=== PATIENT | female | born 1955 | race Two or more races ===

== ENCOUNTER 2017-03-16 15:45 | Inpatient (IN) | payer MEDICAID ==
[~2017-03-16] VITALS: Ht 152.4 cm; Wt 108.0 kg
[~2017-03-16 15:45] MED LIST: ALBU0.084 IN; ALPR0.5T PO; ANAS1TAB6 OR; ARIP2TAB PO; BUSP5TAB51; CEPH500C OR; FURO20TA PO; GABA300C10 OR; IBUP600T39 PO; METF-372 OR; METO25TA3; NITR50CA34 OR; OME20GT; PIOG45TA8 OR; RANI300C7 OR; SERT-160 OR; SIMV-13 OR
[2017-03-16] MEDS ORDERED: SODIUM CHLORIDE 0.9% 500 ML IV ONE (16:48)
[2017-03-16] MEDS ORDERED: LORazepam 2MG/ML-1ML VIAL IV ONE (17:00)
[2017-03-16 19:04] LABS: Basophils # (auto) 0 uL; Basophils % (auto) 0.3 % (0.0-2.0); Eosinophils # (auto) 0.4 uL; Eosinophils % (auto) 3.3 % (0.0-7.0); Hematocrit 41.3 % (36.0-46.0); Hemoglobin 13.1 g/dL (12.2-16.2); Lymphocytes # (auto) 1.7 uL; Lymphocytes % (auto) 15.5 % (10.0-50.0); Mean Corpuscular Hemoglobin 27.2 pg (28.0-32.0); Mean Corpuscular Hgb Conc. 31.7 g/dL (32.0-36.0); Mean Corpuscular Volume 85.7 fL (80.0-100.0); Monocytes # (auto) 0.7 uL; Monocytes % (auto) 6.7 % (0.0-12.0); Neutrophils % (auto) 74.2 % (37.0-80.0); Nucleated Red Blood Cells % 0.1 %; Platelet Count (auto) 331 10^3/uL (140-450); Red Blood Cells 4.82 10^6/uL (4.0-5.20); Red Cell Distribution Width 17.3 % (11.8-14.3); White Blood Cell 10.8 10^3/uL (4.4-10.8)
[2017-03-16 19:29] LABS: Alanine Aminotransferase 24 U/L (13-56); Albumin 3.4 g/dL (3.4-5.0); Alkaline Phosphatase 80 U/L (45-117); Anion Gap 7 (5-15); Aspartate Aminotransferase 30 U/L (15-37); BUN/Creatinine Ratio 33.2; Bilirubin, Total 0.5 mg/dL (0.2-1.0); Blood Urea Nitrogen 67 mg/dL (7-18); Calcium 8.2 mg/dL (8.5-10.1); Carbon Dioxide 32 mmol/L (21-32); Chloride 99 mmol/L (98-107); GFR African American 32 mL/min; GFR Non-African American 26 mL/min; Glucose 142 mg/dL (74-106); Magnesium 2.6 mg/dL (1.6-2.6); Potassium 4.6 mmol/L (3.5-5.1); Sodium 138 mmol/L (136-145); Total Protein 8.2 g/dL (6.4-8.2)
[2017-03-16] MEDS ORDERED: DEXTROSE (50%) 50ML SYRG IV PRN (21:15)
[2017-03-16] MEDS ORDERED: ACETAMINOPHEN 500 MG TAB PO PRN (21:15)
[2017-03-16] MEDS ORDERED: ONDANSETRON HCL 4 MG/2 ML VIAL IV PRN (21:15)
[2017-03-16] MEDS: GABAPENTIN 300 MG CAP PO SCH (22:00)
[2017-03-16 22:30] VITALS: BP 126/74
[2017-03-16] MEDS ORDERED: AZITHROMYCIN 500MG/ 250ML 250 ML IV ONE (22:30)
[2017-03-16] MEDS: InsuLIN REG 1unit/0.01ml Soln (100units/ml) SC SCH (22:30)
[2017-03-16] MEDS ORDERED: FUROSEMIDE 40 MG/4 ML VIAL IV ONE (22:30)
[2017-03-16] MEDS: ACCU-CHEK COMFORT CURVE STRIP VI SCH (22:30)
[2017-03-16 22:38] LABS: Urine Bacteria NONE SEEN /hpf (None Seen); Urine Blood Negative /uL (Negative); Urine Hyaline Cast FEW /lpf (0 - 2); Urine Specific Gravity 1.017 (1.001-1.035); Urine WBC 1 /hpf (0 - 5)
[2017-03-16] MEDS: HYDROcodone-ACET 5/325MG TAB PO PRN (23:56)
[2017-03-16] MEDS: ATORVASTATIN 20 MG TAB PO SCH (23:56)
[2017-03-16] MEDS: TEMAZEPAM 15 MG CAP PO PRN (23:57)
[2017-03-17] MEDS: ALBUTEROL SULF 2.5 MG/0.5ML(0.5%) NEB SOLN NEB SCH ×4 (00:12→18:00)
[2017-03-17] MEDS: IPRATROPIUM BROM 0.5 MG/2.5ML INH SOL NEB SCH ×4 (00:12→18:00)
[2017-03-17 00:20] VITALS: BP 158/82
[2017-03-17 05:00] VITALS: BP 143/79
[2017-03-17] MEDS: DOXYCYCLINE HYC 100MG/250ML 250 ML IV SCH ×2 (06:10→17:44)
[2017-03-17] MEDS: InsuLIN REG 1unit/0.01ml Soln (100units/ml) SC SCH ×4 (07:00→21:36)
[2017-03-17] MEDS: ACCU-CHEK COMFORT CURVE STRIP VI SCH ×4 (07:02→21:36)
[2017-03-17] MEDS: HYDROcodone-ACET 5/325MG TAB PO PRN ×2 (07:54→21:37)
[2017-03-17 08:15] LABS: Basophils # (auto) 0 uL; Basophils % (auto) 0.3 % (0.0-2.0); Eosinophils # (auto) 0.6 uL; Eosinophils % (auto) 6.8 % (0.0-7.0); Hematocrit 38.2 % (36.0-46.0); Hemoglobin 12.1 g/dL (12.2-16.2); Lymphocytes # (auto) 1.6 uL; Lymphocytes % (auto) 18.8 % (10.0-50.0); Mean Corpuscular Hemoglobin 27.2 pg (28.0-32.0); Mean Corpuscular Hgb Conc. 31.8 g/dL (32.0-36.0); Mean Corpuscular Volume 85.8 fL (80.0-100.0); Monocytes # (auto) 0.6 uL; Monocytes % (auto) 7.4 % (0.0-12.0); Neutrophils # (auto) 5.6 uL; Neutrophils % (auto) 66.7 % (37.0-80.0); Nucleated Red Blood Cells % 0.1 %; Platelet Count (auto) 292 10^3/uL (140-450); Red Blood Cells 4.46 10^6/uL (4.0-5.20); Red Cell Distribution Width 16.9 % (11.8-14.3); White Blood Cell 8.4 10^3/uL (4.4-10.8)
[2017-03-17 08:27] LABS: BUN/Creatinine Ratio 45.5; Calcium 8.3 mg/dL (8.5-10.1); Potassium 4.3 mmol/L (3.5-5.1)
[2017-03-17 09:00] VITALS: BP 139/62
[2017-03-17] MEDS ORDERED: AZITHROMYCIN 500MG/ 250ML 250 ML IV SCH (10:00)
[2017-03-17] MEDS: PANTOPRAZOLE 40 MG TAB PO SCH (12:10)
[2017-03-17] MEDS: GABAPENTIN 300 MG CAP PO SCH ×2 (12:10→21:35)
[2017-03-17] MEDS: BENAZEPRIL HCL 10 MG TAB PO SCH (12:10)
[2017-03-17 17:00] VITALS: BP 143/48
[2017-03-17] MEDS: ENOXAPARIN SOD 40 MG/0.4 ML SYRINGE SC SCH (17:44)
[2017-03-17] MEDS ORDERED: LORazepam 2MG/ML-1ML VIAL IV PRN (19:30)
[2017-03-17 21:30] VITALS: BP 135/57
[2017-03-17] MEDS: ATORVASTATIN 20 MG TAB PO SCH (21:35)
[2017-03-17] MEDS: LORazepam 0.5 MG TAB PO PRN (21:36)
[2017-03-18 05:00] VITALS: BP 149/80
[2017-03-18] MEDS: DOXYCYCLINE HYC 100MG/250ML 250 ML IV SCH ×2 (05:54→17:40)
[2017-03-18 06:26] LABS: Basophils # (auto) 0 uL; Basophils % (auto) 0.3 % (0.0-2.0); Eosinophils # (auto) 0.6 uL; Eosinophils % (auto) 8.4 % (0.0-7.0); Hematocrit 37.1 % (36.0-46.0); Hemoglobin 11.9 g/dL (12.2-16.2); Lymphocytes # (auto) 1.6 uL; Lymphocytes % (auto) 22.8 % (10.0-50.0); Mean Corpuscular Hemoglobin 27.5 pg (28.0-32.0); Mean Corpuscular Volume 85.9 fL (80.0-100.0); Monocytes # (auto) 0.5 uL; Neutrophils # (auto) 4.4 uL; Neutrophils % (auto) 61.5 % (37.0-80.0); Platelet Count (auto) 302 10^3/uL (140-450); Red Blood Cells 4.32 10^6/uL (4.0-5.20); Red Cell Distribution Width 16.6 % (11.8-14.3); White Blood Cell 7.2 10^3/uL (4.4-10.8)
[2017-03-18] MEDS: ACCU-CHEK COMFORT CURVE STRIP VI SCH ×4 (06:31→22:13)
[2017-03-18] MEDS: InsuLIN REG 1unit/0.01ml Soln (100units/ml) SC SCH ×4 (06:31→22:13)
[2017-03-18 06:45] LABS: BUN/Creatinine Ratio 43.1; Calcium 8.4 mg/dL (8.5-10.1); Potassium 4.8 mmol/L (3.5-5.1)
[2017-03-18] MEDS: IPRATROPIUM BROM 0.5 MG/2.5ML INH SOL NEB SCH ×4 (06:50→18:45)
[2017-03-18] MEDS: ALBUTEROL SULF 2.5 MG/0.5ML(0.5%) NEB SOLN NEB SCH ×4 (06:50→18:45)
[2017-03-18 08:00] VITALS: BP 144/54
[2017-03-18 09:00] VITALS: BP 144/54
[2017-03-18] MEDS: BENAZEPRIL HCL 10 MG TAB PO SCH (09:58)
[2017-03-18] MEDS: GABAPENTIN 300 MG CAP PO SCH ×2 (10:00→22:13)
[2017-03-18] MEDS: PANTOPRAZOLE 40 MG TAB PO SCH (10:01)
[2017-03-18] MEDS: ENOXAPARIN SOD 40 MG/0.4 ML SYRINGE SC SCH (10:02)
[2017-03-18] MEDS: HYDROcodone-ACET 5/325MG TAB PO PRN (12:27)
[2017-03-18 13:00] VITALS: BP 162/78
[2017-03-18] MEDS ORDERED: POTA10TA34 PO (13:54)
[2017-03-18] MEDS ORDERED: PROMETHAZINE-DM 5 ML ORAL SYRUP PO PRN (14:00)
[2017-03-18] MEDS ORDERED: FUROSEMIDE 20 MG TAB PO SCH (14:00)
[2017-03-18] MEDS ORDERED: OXYCODONE W/ ACETAMINOPHEN 5/325MG TABLET PO PRN (14:00)
[2017-03-18] MEDS: LORazepam 0.5 MG TAB PO PRN (14:25)
[2017-03-18] MEDS ORDERED: PERCOT PO (15:52)
[2017-03-18] MEDS ORDERED: MELO1TAB56 PO (15:52)
[2017-03-18] MEDS ORDERED: OMEG100078 PO (15:52)
[2017-03-18] MEDS ORDERED: POM (15:52)
[2017-03-18] MEDS ORDERED: PANT40TA2 PO (15:52)
[2017-03-18] MEDS ORDERED: METH500T6 PO (15:52)
[2017-03-18] MEDS ORDERED: CHOL20007 OR (15:52)
[2017-03-18] MEDS ORDERED: BENZ1CAP24 PO (15:52)
[2017-03-18] MEDS ORDERED: BENA20TA14 PO (15:52)
[2017-03-18] MEDS ORDERED: ONDA4TAB5 PO (15:52)
[2017-03-18] MEDS ORDERED: ATOR1TAB PO (15:52)
[2017-03-18] MEDS ORDERED: INSLANTI SC (15:52)
[2017-03-18 17:00] VITALS: BP 151/74
[2017-03-18] MEDS: OXYCODONE W/ ACETAMINOPHEN 5/325MG TABLET PO PRN ×2 (17:44→23:39)
[2017-03-18 22:00] VITALS: BP 148/66
[2017-03-18] MEDS: ATORVASTATIN 20 MG TAB PO SCH (22:12)
[2017-03-19] MEDS: ALBUTEROL SULF 2.5 MG/0.5ML(0.5%) NEB SOLN NEB SCH ×3 (00:09→11:28)
[2017-03-19] MEDS: IPRATROPIUM BROM 0.5 MG/2.5ML INH SOL NEB SCH ×3 (00:09→11:28)
[2017-03-19] MEDS: TEMAZEPAM 15 MG CAP PO PRN (00:41)
[2017-03-19 05:00] VITALS: BP 159/61
[2017-03-19] MEDS: DOXYCYCLINE HYC 100MG/250ML 250 ML IV SCH (05:50)
[2017-03-19] MEDS: OXYCODONE W/ ACETAMINOPHEN 5/325MG TABLET PO PRN ×3 (05:51→16:18)
[2017-03-19] MEDS: InsuLIN REG 1unit/0.01ml Soln (100units/ml) SC SCH ×2 (06:31→16:20)
[2017-03-19] MEDS: ACCU-CHEK COMFORT CURVE STRIP VI SCH ×2 (06:31→16:18)
[2017-03-19 07:30] VITALS: BP 158/78
[2017-03-19 09:00] VITALS: BP 168/87
[2017-03-19] MEDS: ENOXAPARIN SOD 40 MG/0.4 ML SYRINGE SC SCH (10:08)
[2017-03-19] MEDS: GABAPENTIN 300 MG CAP PO SCH (10:08)
[2017-03-19] MEDS: BENAZEPRIL HCL 10 MG TAB PO SCH (10:09)
[2017-03-19] MEDS: PANTOPRAZOLE 40 MG TAB PO SCH (10:09)
[2017-03-19] MEDS ORDERED: FUROSEMIDE 20 MG TAB PO ONE (11:15)
== END 2017-03-19 16:25 | disposition home or self-care (01) | DRG 469 ==
LOC: ER 15:45 → EDBD 15:45 → TELE 15:46 → TELE-WESTW 22:26
PROVIDERS: ADMIT Nurse Practitioner Family; ATTEND Internal Medicine
DX: N17.0 Acute kidney failure with tubular necrosis (principal); I50.33 Acute on chronic diastolic (congestive) heart failure; J96.11 Chronic respiratory failure with hypoxia; E11.21 Type 2 diabetes mellitus with diabetic nephropathy; I13.0 Hypertensive heart and chronic kidney disease with heart failure and stage 1 through stage 4 chronic kidney disease, or unspecified chronic kidney disease; G25.0 Essential tremor; Z99.81 Dependence on supplemental oxygen; J44.9 Chronic obstructive pulmonary disease, unspecified; M19.90 Unspecified osteoarthritis, unspecified site; E66.9 Obesity, unspecified; Z68.42 Body mass index [BMI] 45.0-49.9, adult; F32.9 Major depressive disorder, single episode, unspecified; E11.40 Type 2 diabetes mellitus with diabetic neuropathy, unspecified; G40.89 Other seizures; W18.39XA Other fall on same level, initial encounter; F41.9 Anxiety disorder, unspecified; N18.9 Chronic kidney disease, unspecified; R26.9 Unspecified abnormalities of gait and mobility; E78.5 Hyperlipidemia, unspecified; K21.9 Gastro-esophageal reflux disease without esophagitis; Z79.4 Long term (current) use of insulin; Z82.49 Family history of ischemic heart disease and other diseases of the circulatory system; Z86.73 Personal history of transient ischemic attack (TIA), and cerebral infarction without residual deficits; Z87.442 Personal history of urinary calculi; Z85.3 Personal history of malignant neoplasm of breast; Z79.899 Other long term (current) drug therapy; Z87.891 Personal history of nicotine dependence; Y93.89 Activity, other specified; Y92.89 Other specified places as the place of occurrence of the external cause; Y99.8 Other external cause status
CPT/HCPCS: 36415; 70551; 71046; 80048; 80053; 80061; 81001; 82962; 83036; 83735; 83880; 84443; 84484; 85025; 93306; 94640; 95819; 96361; 96365; 96375; J1815; J3490

== ENCOUNTER 2020-05-18 10:14 | Inpatient (IN) | payer OTHER, MEDICAID ==
[~2020-05-18] VITALS: Ht 152.4 cm; Wt 108.2 kg
[~2020-05-18 10:14] MED LIST changes: -ALBU0.084 IN; -ANAS1TAB6 OR; -ARIP2TAB PO; +ATOR-47 PO; +BENA20TA14 PO; +BENZ200C64 PO; -BUSP5TAB51; -CEPH500C OR; +CHOL20007 OR; +FURO1TAB33 PO; -FURO20TA PO; -GABA300C10 OR; +GABA300C10 PO; -IBUP600T39 PO; +INSLANTI SC; +MELO1TAB56 PO; -METF-372 OR; +METH500T22 PO; -METO25TA3; -NITR50CA34 OR; -OME20GT; +OMEG100078 PO; +ONDA-144 PO; +PANT40TA2 PO; +PERCOT PO; -PIOG45TA8 OR; +POM; +POTA1TAB61 PO; -SERT-160 OR; +SERT-160 PO
[2020-05-18] MEDS ORDERED: FUROSEMIDE 40 MG/4 ML VIAL IV ONE (10:30)
[2020-05-18 11:23] LABS: Basophils # (auto) 0 10 ^3/uL (0-0.2); Eosinophils # (auto) 0 10 ^3/uL (0-0.8); Hemoglobin 11.7 g/dL (12.2-16.2); Lymphocytes # (auto) 0.7 10 ^3/uL (0.4-5.4); Monocytes # (auto) 0.8 10 ^3/uL (0-1.3); Monocytes % (auto) 5.3 % (0.0-12.0); Red Cell Distribution Width 17.5 % (11.8-14.3)
[2020-05-18 11:25] LABS: Basophils % (auto) 0.1 % (0.0-2.0); Hematocrit 36.3 % (36.0-46.0); Lymphocytes % (auto) 5.1 % (10.0-50.0); Mean Corpuscular Hgb Conc. 32.2 g/dL (32.0-36.0); Mean Corpuscular Volume 80.7 fL (80.0-100.0); Neutrophils % (auto) 89.5 % (37.0-80.0); Platelet Count (auto) 316 10^3/uL (140-450); White Blood Cell 14.5 10^3/uL (4.4-10.8)
[2020-05-18] MEDS ORDERED: ACETAMINOPHEN 325 MG TAB PO ONE (11:30)
[2020-05-18 11:40] LABS: Albumin 3.3 g/dL (3.4-5.0); Anion Gap 7 (5-15); Aspartate Aminotransferase 13 U/L (15-37); Blood Urea Nitrogen 26 mg/dL (7-18); Calcium 9.2 mg/dL (8.5-10.1); Carbon Dioxide 29 mmol/L (21-32); Chloride 102 mmol/L (98-107); Glucose 192 mg/dL (74-106); Potassium 4.2 mmol/L (3.5-5.1); Sodium 138 mmol/L (136-145)
[2020-05-18 11:45] LABS: Alanine Aminotransferase 20 U/L (13-56); Alkaline Phosphatase 92 U/L (45-117); BUN/Creatinine Ratio 24.1; Bilirubin, Total 0.4 mg/dL (0.2-1.0); GFR African American 65 mL/min; GFR Non-African American 54 mL/min; Total Protein 7.5 g/dL (6.4-8.2)
[2020-05-18 11:52] LABS: INR 1.05 (0.9-1.15); Partial Thromboplastin Time 22.5 sec (23.0-31.2)
[2020-05-18] MEDS ORDERED: MORPHINE SULF INJ 2 MG/ML SYRINGE 1ML IV PRN ×3 (13:15→15:15)
[2020-05-18] MEDS ORDERED: NITROGLYCERIN 0.4 MG SL TAB SL PRN ×2 (13:15→15:15)
[2020-05-18] MEDS ORDERED: AZITHROMYCIN 500MG/ 250ML 250 ML IV ONE (13:15)
[2020-05-18 13:33] LABS: Urine Bacteria FEW /hpf (None Seen); Urine Blood Negative /uL (Negative); Urine Specific Gravity 1.013 (1.001-1.035); Urine WBC 1 /hpf (0 - 5)
[2020-05-18] MEDS ORDERED: cefTRIAXone 1GM/50ML D5W 50 ML IV ONE (14:15)
[2020-05-18] MEDS: methylPREDNISolone SOD SUCC 40 MG/ML VL IV SCH ×2 (14:58→21:41)
[2020-05-18] MEDS ORDERED: HYDROcodone-ACET 5/325MG TAB PO PRN (15:15)
[2020-05-18] MEDS ORDERED: ONDANSETRON HCL 4 MG/2 ML VIAL IV PRN (15:15)
[2020-05-18] MEDS ORDERED: ALUM & MAG HYDROX-SIMETH LIQ(MAALOX) 30 ML PO PRN (15:15)
[2020-05-18] MEDS ORDERED: LORazepam 0.5 MG TAB PO PRN (15:15)
[2020-05-18] MEDS ORDERED: DOCUSATE SOD 100 MG CAP PO PRN (15:15)
[2020-05-18] MEDS ORDERED: SODIUM CHLORIDE 0.9% 1,000 ML IV SCH (15:15)
[2020-05-18 16:17] LABS: Amphetamine Screen, Urine NEGATIVE (NEGATIVE); Barbiturate Scree,Urine NEGATIVE (NEGATIVE); Benzodiazephine Screen, Urine POSITIVE (NEGATIVE); Cannabinoid Screen, Urine NEGATIVE (NEGATIVE); Cocaine Screen, Urine NEGATIVE (NEGATIVE); Opiate Scree,Urine NEGATIVE (NEGATIVE); Phencyclidine Screen, Urine NEGATIVE (NEGATIVE)
[2020-05-18 16:24] LABS: Cholesterol 272 mg/dL (< 200)
[2020-05-18 16:28] LABS: HDL Cholesterol 61 mg/dL (40-59); LDL Cholesterol 184 mg/dL (< 100); Triglycerides 137 mg/dL (< 150)
[2020-05-18] MEDS ORDERED: FURO40TA4 PO (16:33)
[2020-05-18] MEDS ORDERED: INSU1INJ19 SC (16:35)
[2020-05-18] MEDS ORDERED: CHOLTAB11 PO (16:36)
[2020-05-18] MEDS ORDERED: BENZ100C97 PO (16:38)
[2020-05-18 16:40] VITALS: BP 155/74
[2020-05-18] MEDS ORDERED: OXYC325T14 PO (16:40)
[2020-05-18] MEDS ORDERED: PROM1SOL4 PO (16:41)
[2020-05-18] MEDS ORDERED: FAMO20TA10 PO (16:42)
[2020-05-18] MEDS ORDERED: MONT10TA34 PO (16:43)
[2020-05-18] MEDS ORDERED: SILD20TA PO (16:44)
[2020-05-18] MEDS ORDERED: DULO60CA PO (16:44)
[2020-05-18] MEDS ORDERED: ALLO100T PO (16:45)
[2020-05-18] MEDS ORDERED: DOCU100T15 PO (16:46)
[2020-05-18] MEDS ORDERED: DICL1GEL72 EX (16:46)
[2020-05-18] MEDS ORDERED: FLUT1AER3 IN (16:47)
[2020-05-18] MEDS ORDERED: FLUT50SP28 (16:47)
[2020-05-18] MEDS ORDERED: IPRATROPIUM BROM 0.5 MG/2.5ML INH SOL NEB ONE (18:00)
[2020-05-18] MEDS ORDERED: ALBUTEROL SULF 2.5 MG/0.5ML(0.5%) NEB SOLN NEB ONE (18:00)
[2020-05-18 22:00] VITALS: BP 140/67
[2020-05-19 05:00] VITALS: BP 141/77
[2020-05-19] MEDS: methylPREDNISolone SOD SUCC 40 MG/ML VL IV SCH ×3 (05:30→21:06)
[2020-05-19 07:34] LABS: Basophils # (auto) 0 10 ^3/uL (0-0.2); Basophils % (auto) 0.1 % (0.0-2.0); Eosinophils # (auto) 0 10 ^3/uL (0-0.8); Hematocrit 36.5 % (36.0-46.0); Hemoglobin 11.7 g/dL (12.2-16.2); Lymphocytes # (auto) 0.8 10 ^3/uL (0.4-5.4); Lymphocytes % (auto) 6.8 % (10.0-50.0); Mean Corpuscular Hemoglobin 26.2 pg (28.0-32.0); Mean Corpuscular Hgb Conc. 31.9 g/dL (32.0-36.0); Mean Corpuscular Volume 81.9 fL (80.0-100.0); Monocytes # (auto) 0.3 10 ^3/uL (0-1.3); Monocytes % (auto) 2.7 % (0.0-12.0); Neutrophils # (auto) 10.6 10 ^3/uL (1.6-8.6); Neutrophils % (auto) 90.4 % (37.0-80.0); Nucleated Red Blood Cells % 0.1 %; Platelet Count (auto) 282 10^3/uL (140-450); Red Blood Cells 4.45 10^6/uL (4.0-5.20); Red Cell Distribution Width 17.5 % (11.8-14.3); White Blood Cell 11.7 10^3/uL (4.4-10.8)
[2020-05-19 07:53] LABS: Calcium 9.1 mg/dL (8.5-10.1); Magnesium 2.3 mg/dL (1.6-2.6); Potassium 4.4 mmol/L (3.5-5.1)
[2020-05-19 07:55] LABS: INR 1.07 (0.9-1.15); Partial Thromboplastin Time 26.3 sec (23.0-31.2)
[2020-05-19 07:58] LABS: Albumin 3.1 g/dL (3.4-5.0); BUN/Creatinine Ratio 35.6; Bilirubin, Total 0.4 mg/dL (0.2-1.0); Phosphorus 3.6 mg/dL (2.5-4.90); Total Protein 7.4 g/dL (6.4-8.2)
[2020-05-19] MEDS: cefTRIAXone 1GM/50ML D5W 50 ML IV SCH (08:52)
[2020-05-19 09:00] VITALS: BP 156/80
[2020-05-19] MEDS ORDERED: cefTRIAXone 1GM/50ML D5W 50 ML IV SCH (09:00)
[2020-05-19] MEDS ORDERED: cefTRIAXone SOD 1,000 MG VL IM ONE (10:00)
[2020-05-19] MEDS ORDERED: DEXTROSE (50%) 50ML SYRG IV PRN (10:15)
[2020-05-19] MEDS: AZITHROMYCIN 500MG/ 250ML 250 ML IV SCH (10:24)
[2020-05-19] MEDS: ACCU-CHEK COMFORT CURVE STRIP VI SCH ×3 (11:30→22:00)
[2020-05-19] MEDS: InsuLIN REG 1unit/0.01ml Soln (100units/ml) SC SCH ×2 (12:43→16:56)
[2020-05-19 13:00] VITALS: BP 163/60
[2020-05-19 17:00] VITALS: BP 164/86
[2020-05-19] MEDS ORDERED: hydrALAZINE HCL 20 MG/ML VL IV SCH (18:00)
[2020-05-19] MEDS: hydrALAZINE HCL 20 MG/ML VL IV PRN (19:00)
[2020-05-19 20:00] VITALS: BP 182/82
[2020-05-19 22:00] VITALS: BP 141/79
[2020-05-19] MEDS ORDERED: InsuLIN REG 1unit/0.01ml Soln (100units/ml) SC SCH (22:00)
[2020-05-20] MEDS: methylPREDNISolone SOD SUCC 40 MG/ML VL IV SCH (04:39)
[2020-05-20] MEDS: hydrALAZINE HCL 20 MG/ML VL IV PRN (04:40)
[2020-05-20] MEDS: InsuLIN REG 1unit/0.01ml Soln (100units/ml) SC SCH ×2 (04:48→12:07)
[2020-05-20 05:00] VITALS: BP 181/82
[2020-05-20] MEDS: ACCU-CHEK COMFORT CURVE STRIP VI SCH ×2 (05:08→12:07)
[2020-05-20 07:12] LABS: Basophils # (auto) 0 10 ^3/uL (0-0.2); Basophils % (auto) 0.1 % (0.0-2.0); Eosinophils # (auto) 0 10 ^3/uL (0-0.8); Eosinophils % (auto) 0.1 % (0.0-7.0); Hematocrit 38.1 % (36.0-46.0); Hemoglobin 12.4 g/dL (12.2-16.2); Lymphocytes # (auto) 1.5 10 ^3/uL (0.4-5.4); Lymphocytes % (auto) 12.6 % (10.0-50.0); Mean Corpuscular Hemoglobin 26.6 pg (28.0-32.0); Mean Corpuscular Hgb Conc. 32.6 g/dL (32.0-36.0); Mean Corpuscular Volume 81.6 fL (80.0-100.0); Monocytes # (auto) 0.8 10 ^3/uL (0-1.3); Monocytes % (auto) 6.3 % (0.0-12.0); Neutrophils # (auto) 9.7 10 ^3/uL (1.6-8.6); Neutrophils % (auto) 80.9 % (37.0-80.0); Platelet Count (auto) 314 10^3/uL (140-450); Red Blood Cells 4.67 10^6/uL (4.0-5.20); Red Cell Distribution Width 17.5 % (11.8-14.3)
[2020-05-20 07:29] LABS: Albumin 3.3 g/dL (3.4-5.0); Calcium 9.6 mg/dL (8.5-10.1); Magnesium 2.2 mg/dL (1.6-2.6); Potassium 4.3 mmol/L (3.5-5.1)
[2020-05-20 07:32] LABS: BUN/Creatinine Ratio 42.9; Bilirubin, Total 0.4 mg/dL (0.2-1.0); Phosphorus 3.2 mg/dL (2.5-4.90); Total Protein 7.5 g/dL (6.4-8.2)
[2020-05-20] MEDS: cefTRIAXone 1GM/50ML D5W 50 ML IV SCH (08:45)
[2020-05-20 09:01] VITALS: BP 160/71
[2020-05-20] MEDS: AZITHROMYCIN 500MG/ 250ML 250 ML IV SCH (10:23)
[2020-05-20] MEDS ORDERED: ALBUTEROL SULF 2.5 MG/0.5ML(0.5%) NEB SOLN NEB PRN (12:00)
[2020-05-20] MEDS ORDERED: IPRATROPIUM BROM 0.5 MG/2.5ML INH SOL NEB PRN (12:00)
[2020-05-20] MEDS ORDERED: SILDENAFIL CITRATE 20 MG TAB PO SCH (22:00)
[2020-05-21] MEDS ORDERED: MONTELUKAST SODIUM 10 MG TAB PO SCH (10:00)
== END 2020-05-20 13:09 | disposition left against medical advice (07) | DRG 871 ==
LOC: ER 10:14 → TELE 10:15 → TELE-CENTR 17:59
PROVIDERS: ADMIT Hospitalist; ATTEND Hospitalist
DX: A41.9 Sepsis, unspecified organism (principal); J18.9 Pneumonia, unspecified organism; J96.21 Acute and chronic respiratory failure with hypoxia; N17.0 Acute kidney failure with tubular necrosis; E44.1 Mild protein-calorie malnutrition; I13.0 Hypertensive heart and chronic kidney disease with heart failure and stage 1 through stage 4 chronic kidney disease, or unspecified chronic kidney disease; I16.9 Hypertensive crisis, unspecified; J44.1 Chronic obstructive pulmonary disease with (acute) exacerbation; J44.0 Chronic obstructive pulmonary disease with (acute) lower respiratory infection; J98.11 Atelectasis; Z68.42 Body mass index [BMI] 45.0-49.9, adult; I50.42 Chronic combined systolic (congestive) and diastolic (congestive) heart failure; E11.22 Type 2 diabetes mellitus with diabetic chronic kidney disease; E66.01 Morbid (severe) obesity due to excess calories; Z53.29 Procedure and treatment not carried out because of patient's decision for other reasons; F32.9 Major depressive disorder, single episode, unspecified; F41.9 Anxiety disorder, unspecified; I27.21 Secondary pulmonary arterial hypertension; M10.9 Gout, unspecified; N18.2 Chronic kidney disease, stage 2 (mild); Z20.822 Contact with and (suspected) exposure to COVID-19; Z79.4 Long term (current) use of insulin; Z79.899 Other long term (current) drug therapy; Z82.49 Family history of ischemic heart disease and other diseases of the circulatory system; Z85.3 Personal history of malignant neoplasm of breast; Z85.820 Personal history of malignant melanoma of skin; Z87.891 Personal history of nicotine dependence; Z90.13 Acquired absence of bilateral breasts and nipples; Z99.81 Dependence on supplemental oxygen; Z87.442 Personal history of urinary calculi; E11.65 Type 2 diabetes mellitus with hyperglycemia
CPT/HCPCS: 36415; 36600; 71045; 80053; 80061; 80307; 81001; 82805; 82962; 83036; 83735; 83880; 84100; 84443; 84484; 85025; 85610; 85730; 87040; 87086; 87426; 93005; 93970; 94640; 96365; 96367; 96375; 99291; G0378; J0696; J1815

== ENCOUNTER 2022-02-04 06:18 | Day surgery (SDC) | payer OTHER, MEDICAID ==
[~2022-02-04] VITALS: Ht 149.9 cm; Wt 93.0 kg
[2022-02-04] VITALS (8 sets, daily range): BP systolic 101–156; BP diastolic 60–87
[~2022-02-04 06:18] MED LIST changes: +ALLO100T PO; +BENZ100C97 PO; -BENZ200C64 PO; +CARI350T22 PO; -CHOL20007 OR; +CHOLTAB11 PO; +DICL1GEL72 EX; +DOCU100T15 PO; +DULO60CA PO; +EVOL140I SC; +FAMO20TA10 PO; +FLUT1AER3 IN; +FLUT50SP28; -FURO1TAB33 PO; +FURO40TA4 PO; +HYDR25TA5 PO; -INSLANTI SC; +INSU1INJ19 SC; -MELO1TAB56 PO; +METO-158 PO; +MONT-8 PO; +OXYC325T14 PO; -PERCOT PO; -POM; -POTA1TAB61 PO; +PROM1SOL4 PO; -RANI300C7 OR; +SILD20TA PO; -SIMV-13 OR
[2022-02-04] MEDS ORDERED: HEPARIN SODIUM (PORCINE) 5000 UNITS/ML 1ML VIAL ONE (07:36)
[2022-02-04] MEDS ORDERED: ANGIOMAX 250 MG VIAL IV ONE (07:36)
[2022-02-04] MEDS ORDERED: VERAPAMIL 2.5MG/ML INJ 2ML VIAL IV ONE (07:36)
[2022-02-04] MEDS ORDERED: fentaNYL CITRATE 100 MCG/2 ML VL ONE (07:37)
[2022-02-04] MEDS ORDERED: MIDAZOLAM HCL 2MG/2ML 2ml VIAL (1mg/ml) ONE (07:37)
[2022-02-04] MEDS ORDERED: IOHEXOL 350 MG/ML 100ML IJ ONE (07:37)
[2022-02-04] MEDS ORDERED: SODIUM CHL 0.9% 0 ML ONE (07:37)
[2022-02-04] MEDS ORDERED: LIDOCAINE 2%HCL (LOCAL ANESTH.) INJ 20ML MDV ONE (07:39)
[2022-02-04] MEDS ORDERED: LIDOCAINE 2%HCL (LOCAL ANESTH.) INJ 10ml MDV IJ ONE (07:45)
[2022-02-04] MEDS ORDERED: IODIXANOL 320MG/ML 100ML BTL IV ONE (08:59)
== END 2022-02-04 11:43 | disposition home or self-care (01) ==
LOC: CATH 06:18
PROVIDERS: ATTEND Internal Medicine Cardiovascular Disease
DX: I25.10 Atherosclerotic heart disease of native coronary artery without angina pectoris (principal); R06.02 Shortness of breath; I27.0 Primary pulmonary hypertension; I12.9 Hypertensive chronic kidney disease with stage 1 through stage 4 chronic kidney disease, or unspecified chronic kidney disease; E66.9 Obesity, unspecified; E78.5 Hyperlipidemia, unspecified; M19.90 Unspecified osteoarthritis, unspecified site; Z79.899 Other long term (current) drug therapy; Z20.822 Contact with and (suspected) exposure to COVID-19
CPT/HCPCS: 93460; C1751; C1760; C1769; C1894; J1644; J2250; J3010; J7030; Q9967; U0003; 93458; 99152; 99153

== ENCOUNTER 2023-04-19 11:06 | Inpatient (IN) | payer OTHER, MEDICAID ==
[~2023-04-19] VITALS: Ht 149.9 cm; Wt 79.8 kg
[~2023-04-19 11:06] MED LIST changes: +BENA-36 PO; -BENA20TA14 PO; -CARI350T22 PO; +CARI350T27 PO; -DULO60CA PO; +DULO60CA41 PO; +GABA-1250 PO; -GABA300C10 PO; +METH-1181 PO; -METH500T22 PO; +OMEG-20 PO; -OMEG100078 PO
[2023-04-19 12:10] LABS: Basophils # (auto) 0 10 ^3/uL (0-0.2); Basophils % (auto) 0.5 % (0.0-2.0); Eosinophils # (auto) 0.2 10 ^3/uL (0-0.8); Eosinophils % (auto) 2.3 % (0.0-7.0); Hematocrit 39.8 % (36.0-46.0); Hemoglobin 13.1 g/dL (12.2-16.2); Lymphocytes # (auto) 1.8 10 ^3/uL (0.4-5.4); Lymphocytes % (auto) 27.5 % (10.0-50.0); Mean Corpuscular Hemoglobin 28.5 pg (28.0-32.0); Mean Corpuscular Volume 86.5 fL (80.0-100.0); Monocytes # (auto) 0.4 10 ^3/uL (0-1.3); Monocytes % (auto) 5.5 % (0.0-12.0); Neutrophils # (auto) 4.1 10 ^3/uL (1.6-8.6); Neutrophils % (auto) 64.2 % (37.0-80.0); Nucleated Red Blood Cells % 0.1 %; Red Cell Distribution Width 14.7 % (11.8-14.3); White Blood Cell 6.5 10^3/uL (4.4-10.8)
[2023-04-19 12:25] LABS: Chloride 106 mmol/L (98-107); Potassium 4.1 mmol/L (3.5-5.1); Sodium 141 mmol/L (136-145)
[2023-04-19 12:26] LABS: Anion Gap 6 (5-15); Carbon Dioxide 29 mmol/L (20-30)
[2023-04-19 12:27] LABS: Calcium 9.3 mg/dL (8.5-10.1)
[2023-04-19 12:31] LABS: BUN/Creatinine Ratio 12.7 (10.0-20.0); Blood Urea Nitrogen 10 mg/dL (9-23); Glucose 95 mg/dL (74-106)
[2023-04-19 12:32] LABS: Blood Alcohol < 3.0 mg/dL (<10)
[2023-04-19] MEDS: ASPirin-EC 325mg tab PO ONE (14:24)
[2023-04-19] MEDS ORDERED: MORPHINE SULFATE INJ 2 MG/ml SYRG IV PRN (16:15)
[2023-04-19] MEDS ORDERED: DOCUSATE SOD 100 MG CAP PO SCH (16:15)
[2023-04-19] MEDS ORDERED: NITROGLYCERIN 0.4 MG SL TAB SL PRN (16:15)
[2023-04-19] MEDS: IOHEXOL 350 MG/ML 100ML IJ ONE (17:35)
[2023-04-19] MEDS: ENOXAPARIN SOD 100 MG/1 ML SYRINGE SC ONE (17:51)
[2023-04-19 17:54] VITALS: PULSE 66; RESP 20; O2SAT 100
[2023-04-19 19:25] VITALS: PULSE 61; RESP 11; O2SAT 99
[2023-04-19] MEDS: ATORVASTATIN 20 MG TAB PO SCH (21:54)
[2023-04-19] MEDS: ONDANSETRON ODT 4 MG TAB PO SCH (21:54)
[2023-04-19] MEDS: ALLOPURINOL 100 MG TAB PO SCH (21:54)
[2023-04-19] MEDS ORDERED: FAMOTIDINE 20 MG TAB PO SCH (22:00)
[2023-04-19] MEDS ORDERED: SILDENAFIL CITRATE 20 MG TAB PO SCH (22:00)
[2023-04-19] MEDS: BENZONATATE 100 MG PO SCH (22:01)
[2023-04-19] MEDS: DICLOFENAC 1% GEL TOP SCH (22:01)
[2023-04-19] MEDS: TRELEGY ELLIPTA IN SCH (22:01)
[2023-04-19] MEDS: [UNRECOGNIZED DRUG - OTHER] IN SCH (22:01)
[2023-04-19] MEDS: FUROSEMIDE 40 MG TAB PO SCH (22:07)
[2023-04-19 23:41] VITALS: BP 140/59; PULSE 64; RESP 18; TEMP 97.8; O2SAT 98
[2023-04-20] VITALS (12 sets, daily range): BP systolic 105–147; BP diastolic 54–89; PULSE 52–79; RESP 16–22; TEMP 97.7–98.4; O2SAT 84–98
[2023-04-20] MEDS ORDERED: FLUT1AER3 IN (00:53)
[2023-04-20] MEDS ORDERED: MIRA50TA OR (00:53)
[2023-04-20] MEDS ORDERED: AML5T GT (00:53)
[2023-04-20] MEDS ORDERED: TRAZ-228 PO (00:53)
[2023-04-20] MEDS ORDERED: TOLT2CAP PO (00:53)
[2023-04-20] MEDS ORDERED: CHOL20007 PO (00:53)
[2023-04-20] MEDS: FLUTICASONE PROP NASAL SPR 0.05 % (50MCG) 16GM SCH (07:02)
[2023-04-20 08:52] LABS: Hepatitis B Surface Antigen Negative (Negative)
[2023-04-20 09:14] LABS: Hepatitis C Antibody Negative (Negative)
[2023-04-20] MEDS: CHOLECALCIFEROL 5000 UNIT PO SCH (09:22)
[2023-04-20] MEDS: Omega-3 Fatty Acids (Fish Oil) 1,000 MG CAPSULE PO SCH (09:23)
[2023-04-20] MEDS: DULoxetine HCL 30 MG CAP PO SCH (09:26)
[2023-04-20] MEDS: METOPROLOL TARTRATE 50 MG TAB PO SCH (09:26)
[2023-04-20] MEDS: MONTELUKAST SODIUM 10 MG TAB PO SCH (09:27)
[2023-04-20] MEDS: LISINOPRIL 20 MG TAB PO SCH (09:27)
[2023-04-20] MEDS: PANTOPRAZOLE 40 MG TAB PO SCH (09:28)
[2023-04-20] MEDS: hydroCHLOROthiazide 25 MG TAB PO SCH (09:29)
[2023-04-20] MEDS ORDERED: SERTRALINE HCL 50 MG TAB PO SCH (10:00)
[2023-04-20] MEDS: ONDANSETRON HCL 4 MG/2 ML VIAL IV PRN (13:02)
[2023-04-20] MEDS: methylPREDNISolone SOD SUCC 40 MG/ML VL IV SCH (13:02)
[2023-04-20] MEDS: IPRATROPIUM BROM 0.5 MG/2.5ML INH SOL NEB PRN (17:20)
[2023-04-20] MEDS: ALBUTEROL SULF 2.5 MG/0.5ML(0.5%) NEB SOLN NEB PRN (17:21)
[2023-04-21] VITALS (13 sets, daily range): BP systolic 116–153; BP diastolic 50–84; PULSE 64–84; RESP 18–20; TEMP 97.8–98.2; O2SAT 96–100
[2023-04-21] MEDS ORDERED: DEXTROSE (50%) 50ML SYRG IV PRN (07:00)
[2023-04-21] MEDS: ACCU-CHEK COMFORT CURVE STRIP VI SCH (07:02)
[2023-04-21] MEDS: InsuLIN REG 1unit/0.01ml Soln (100units/ml) SC SCH (07:07)
[2023-04-21] MEDS: FUROSEMIDE 40 MG TAB PO SCH (08:26)
[2023-04-21] MEDS: SILDENAFIL CITRATE 20 MG TAB PO SCH ×2 (08:26→14:15)
[2023-04-21] MEDS: ALPRAZolam 0.5 MG TAB PO ONE (11:33)
[2023-04-22] VITALS (11 sets, daily range): BP systolic 122–143; BP diastolic 51–96; PULSE 71–101; RESP 16–20; TEMP 97.7–98.6; O2SAT 97–100
[2023-04-22] MEDS: ALPRAZolam 0.5 MG TAB PO SCH ×2 (09:01→21:39)
[2023-04-22 14:42] LABS: Chloride 98 mmol/L (98-107); Potassium 4.2 mmol/L (3.5-5.1)
[2023-04-22 14:43] LABS: Anion Gap 6 (5-15); Calcium 9.6 mg/dL (8.7-10.4); Carbon Dioxide 31 mmol/L (20-30)
[2023-04-22 14:48] LABS: BUN/Creatinine Ratio 29.1 (10.0-20.0); Blood Urea Nitrogen 30 mg/dL (9-23); Glucose 250 mg/dL (74-106)
[2023-04-22 15:06] LABS: Sodium 135 mmol/L (136-145)
[2023-04-22] MEDS ORDERED: IOHEXOL 300 MG/ML 100ML BOTTLE IJ ONE (15:13)
[2023-04-22] MEDS: SODIUM CHLORIDE 0.9% 1,000 ML IV SCH (20:44)
[2023-04-22] MEDS: BENZONATATE 100 MG PO SCH (21:40)
[2023-04-23 05:00] VITALS: BP 134/62; PULSE 74; RESP 20; TEMP 97.9; O2SAT 98
[2023-04-23 07:13] LABS: Anion Gap 7 (5-15); Carbon Dioxide 30 mmol/L (20-30); Chloride 100 mmol/L (98-107); Potassium 4.5 mmol/L (3.5-5.1); Sodium 137 mmol/L (136-145)
[2023-04-23 07:14] LABS: Calcium 9.6 mg/dL (8.5-10.1)
[2023-04-23 07:19] LABS: BUN/Creatinine Ratio 24.2 (10.0-20.0); Blood Urea Nitrogen 24 mg/dL (9-23); Glucose 217 mg/dL (74-106)
[2023-04-23 08:00] VITALS: PULSE 67
[2023-04-23] MEDS ORDERED: FURO1TAB33 PO (08:46)
[2023-04-23] MEDS ORDERED: PANT40TA2 PO (08:48)
[2023-04-23] MEDS ORDERED: FLUT1AER3 IN (08:48)
[2023-04-23] MEDS ORDERED: SILD20TA PO (08:48)
[2023-04-23 08:52] VITALS: BP_SYST 126; BP_SYST 153; BP_DIAS 84; BP_DIAS 96; PULSE 71; PULSE 81; RESP 16; RESP 18; TEMP 97.7; O2SAT 91; O2SAT 92
[2023-04-23 10:29] VITALS: O2SAT 100
[2023-04-23 12:20] VITALS: BP 153/84; PULSE 71; RESP 18; O2SAT 100
[2023-04-23 13:04] VITALS: BP 145/77; PULSE 70; RESP 16; TEMP 97.9; O2SAT 98
== END 2023-04-23 13:15 | disposition home or self-care (01) | DRG 291 ==
LOC: ER 11:06 → TELE 16:17 → TELE-WESTW 23:09
PROVIDERS: ADMIT Internal Medicine; ATTEND Nurse Practitioner Acute Care
DX: I13.0 Hypertensive heart and chronic kidney disease with heart failure and stage 1 through stage 4 chronic kidney disease, or unspecified chronic kidney disease (principal); I50.33 Acute on chronic diastolic (congestive) heart failure; J96.21 Acute and chronic respiratory failure with hypoxia; R07.9 Chest pain, unspecified; F41.9 Anxiety disorder, unspecified; F32.A Depression, unspecified; E78.5 Hyperlipidemia, unspecified; N20.0 Calculus of kidney; J44.9 Chronic obstructive pulmonary disease, unspecified; E66.9 Obesity, unspecified; I27.20 Pulmonary hypertension, unspecified; I25.10 Atherosclerotic heart disease of native coronary artery without angina pectoris; J84.10 Pulmonary fibrosis, unspecified; E11.22 Type 2 diabetes mellitus with diabetic chronic kidney disease; N18.9 Chronic kidney disease, unspecified; Z87.891 Personal history of nicotine dependence; Z79.899 Other long term (current) drug therapy; Z82.49 Family history of ischemic heart disease and other diseases of the circulatory system; Z80.41 Family history of malignant neoplasm of ovary; Z80.59 Family history of malignant neoplasm of other urinary tract organ; Z68.36 Body mass index [BMI] 36.0-36.9, adult
CPT/HCPCS: 36415; 36600; 70491; 71045; 71275; 80048; 80320; 82805; 82962; 83615; 84484; 85025; 85379; 86803; 87340; 93005; 93306; 94640; G0378; J1815; J2405; Q0162

== ENCOUNTER 2023-11-03 09:46 | Inpatient (IN) | payer OTHER, MEDICAID ==
[~2023-11-03] VITALS: Ht 149.9 cm; Wt 81.7 kg
[~2023-11-03 09:46] MED LIST changes: -CARI350T27 PO; -FLUT50SP28; +FURO1TAB33 PO; -FURO40TA4 PO; -HYDR25TA5 PO; -METO-158 PO; +MIRA50TA OR; -ONDA-144 PO; -OXYC325T14 PO; -PROM1SOL4 PO; +TOLT2CAP PO
[2023-11-03 10:33] VITALS: PULSE 92; RESP 18; O2SAT 92
[2023-11-03] MEDS: ALBUTEROL SULF 2.5 MG/0.5ML(0.5%) NEB SOLN NEB ONE (10:47)
[2023-11-03] MEDS: methylPREDNISolone SOD SUCC 125 MG/2 ML VL IV ONE (11:00)
[2023-11-03] MEDS: cefTRIAXone 1GM/50ML D5W 50 ML IV ONE (11:14)
[2023-11-03] MEDS: ACETAMINOPHEN 325 MG TAB PO ONE (11:14)
[2023-11-03 11:23] LABS: Basophils # (auto) 0 10 ^3/uL (0-0.2); Basophils % (auto) 0.2 % (0.0-2.0); Eosinophils # (auto) 0 10 ^3/uL (0-0.8); Eosinophils % (auto) 0.5 % (0.0-7.0); Hematocrit 37.1 % (36.0-46.0); Hemoglobin 12.4 g/dL (12.2-16.2); Lymphocytes # (auto) 1.3 10 ^3/uL (0.4-5.4); Lymphocytes % (auto) 22.7 % (10.0-50.0); Mean Corpuscular Hemoglobin 29.6 pg (28.0-32.0); Mean Corpuscular Hgb Conc. 33.5 g/dL (32.0-36.0); Mean Corpuscular Volume 88.3 fL (80.0-100.0); Monocytes # (auto) 0.3 10 ^3/uL (0-1.3); Monocytes % (auto) 5.9 % (0.0-12.0); Neutrophils # (auto) 4.2 10 ^3/uL (1.6-8.6); Neutrophils % (auto) 70.7 % (37.0-80.0); Platelet Count (auto) 218 10^3/uL (140-450); Red Blood Cells 4.21 10^6/uL (4.0-5.20); Red Cell Distribution Width 14.6 % (11.8-14.3)
[2023-11-03 11:48] LABS: Alanine Aminotransferase 15 U/L (7-40); Albumin 3.8 g/dL (3.2-4.8); Alkaline Phosphatase 74 U/L (46-116); Anion Gap 6 (5-15); Aspartate Aminotransferase 17 U/L (13-40); BUN/Creatinine Ratio 21.9 (10.0-20.0); Bilirubin, Total 0.7 mg/dL (0.2-1.0); Blood Urea Nitrogen 30 mg/dL (9-23); Calcium 9.2 mg/dL (8.7-10.4); Carbon Dioxide 29 mmol/L (20-30); Chloride 103 mmol/L (98-107); Glucose 160 mg/dL (74-106); Potassium 4.3 mmol/L (3.5-5.1); Sodium 138 mmol/L (136-145)
[2023-11-03 11:49] LABS: Total Protein 5.9 g/dL (5.7-8.2)
[2023-11-03] MEDS: FUROSEMIDE 40 MG/4 ML VIAL IV ONE ×2 (14:10→14:45)
[2023-11-03] MEDS ORDERED: IPRATROPIUM BROM 0.5 MG/2.5ML INH SOL NEB SCH ×2 (14:45→18:00)
[2023-11-03] MEDS ORDERED: ALBUTEROL SULF 2.5 MG/0.5ML(0.5%) NEB SOLN NEB SCH ×2 (14:45→18:00)
[2023-11-03] MEDS ORDERED: ACETAMINOPHEN 325 MG TAB PO PRN (14:45)
[2023-11-03] MEDS ORDERED: DOCUSATE SOD 100 MG CAP PO PRN ×2 (14:45→15:45)
[2023-11-03] MEDS ORDERED: HYDROcodone-ACET 5/325MG TAB PO PRN (14:45)
[2023-11-03] MEDS ORDERED: MORPHINE SULFATE INJ 2 MG/ml SYRG IV PRN (14:45)
[2023-11-03] MEDS ORDERED: ONDANSETRON HCL 4 MG/2 ML VIAL IV PRN (14:45)
[2023-11-03 15:49] VITALS: BP 124/59; PULSE 79; RESP 20; TEMP 100.9
[2023-11-03] MEDS: GABAPENTIN 300 MG CAP PO SCH (16:13)
[2023-11-03 16:43] VITALS: PULSE 70; RESP 17; O2SAT 96
[2023-11-03] MEDS: methylPREDNISolone SOD SUCC 125 MG/2 ML VL IV SCH (18:00)
[2023-11-03 19:31] VITALS: PULSE 92; RESP 18; O2SAT 95
[2023-11-03] MEDS: IPRATROPIUM BROM 0.5 MG/2.5ML INH SOL NEB SCH (19:31)
[2023-11-03] MEDS: ALBUTEROL SULF 2.5 MG/0.5ML(0.5%) NEB SOLN NEB SCH (19:31)
[2023-11-03 19:40] VITALS: PULSE 89; RESP 18; O2SAT 96
[2023-11-03] MEDS: INSULIN LANTUS (GLARGINE) 1 /0.01ml (100units/ml) SC SCH (21:53)
[2023-11-03] MEDS: ATORVASTATIN 20 MG TAB PO SCH (21:56)
[2023-11-03] MEDS: ALLOPURINOL 100 MG TAB PO SCH (21:56)
[2023-11-03] MEDS: SODIUM CHLOR 0.9% PF (SALINE LOCK) 10ML VIAL/SYR IV SCH (21:58)
[2023-11-03] MEDS: TRELEGY ELLIPTA IN SCH (22:00)
[2023-11-03] MEDS: [UNRECOGNIZED DRUG - OTHER] IN SCH (22:00)
[2023-11-03] MEDS: BENZONATATE PO SCH (22:01)
[2023-11-03] MEDS: FAMOTIDINE 20 MG TAB PO SCH (22:41)
[2023-11-03] MEDS ORDERED: DEXTROSE (50%) 50ML SYRG IV PRN (23:30)
[2023-11-04] VITALS (16 sets, daily range): BP systolic 111–134; BP diastolic 40–60; PULSE 66–99; RESP 14–19; TEMP 97.5–98.2; O2SAT 92–100
[2023-11-04] MEDS: ACCU-CHEK COMFORT CURVE STRIP VI SCH ×3 (00:59→18:18)
[2023-11-04] MEDS: InsuLIN REG 1unit/0.01ml Soln (100units/ml) SC SCH ×3 (01:09→21:56)
[2023-11-04] MEDS ORDERED: ACCU-CHEK COMFORT CURVE STRIP VI SCH (07:00)
[2023-11-04 08:17] LABS: Alanine Aminotransferase 15 U/L (7-40); Albumin 4.1 g/dL (3.2-4.8); Alkaline Phosphatase 71 U/L (46-116); Anion Gap 8 (5-15); Aspartate Aminotransferase 13 U/L (13-40); BUN/Creatinine Ratio 31.3 (10.0-20.0); Bilirubin, Total 0.4 mg/dL (0.2-1.0); Blood Urea Nitrogen 35 mg/dL (9-23); Calcium 9.9 mg/dL (8.7-10.4); Carbon Dioxide 29 mmol/L (20-30); Chloride 101 mmol/L (98-107); Glucose 231 mg/dL (74-106); Potassium 3.6 mmol/L (3.5-5.1); Sodium 138 mmol/L (136-145); Total Protein 6.7 g/dL (5.7-8.2)
[2023-11-04 08:28] LABS: Triglycerides 77 mg/dL (< 150)
[2023-11-04 08:29] LABS: Hematocrit 33.4 % (36.0-46.0); Hemoglobin 11.4 g/dL (12.2-16.2); LDL Cholesterol 92 mg/dL (< 100); Mean Corpuscular Hemoglobin 29.7 pg (28.0-32.0); Mean Corpuscular Hgb Conc. 34.1 g/dL (32.0-36.0); Platelet Count (auto) 257 10^3/uL (140-450); Red Blood Cells 3.84 10^6/uL (4.0-5.20); Red Cell Distribution Width 14.2 % (11.8-14.3); White Blood Cell 5.6 10^3/uL (4.4-10.8)
[2023-11-04 08:30] LABS: Cholesterol 162 mg/dL (< 200); HDL Cholesterol 51 mg/dL (40-59)
[2023-11-04 08:33] LABS: Band Neutrophils % (manual) 0; Basophils % (manual) 0 (0.0-2.0); Blast Cells 0; Eosinophils % (manual) 0 (0-7); Metamyelocytes % 0; Myelocytes % 0; Promyelocytes % 0; Reactive Lymphocytes 0
[2023-11-04] MEDS: CHOLECALCIFEROL (VITD3) 1,000UNIT=25mCg TAB PO SCH (09:28)
[2023-11-04] MEDS: DULoxetine HCL 30 MG CAP PO SCH (09:29)
[2023-11-04] MEDS: MONTELUKAST SODIUM 10 MG TAB PO SCH (09:30)
[2023-11-04] MEDS: SILDENAFIL CITRATE 20 MG TAB PO SCH (09:31)
[2023-11-04] MEDS: ENOXAPARIN SOD 40 MG/0.4 ML SYRINGE SC SCH (09:31)
[2023-11-04] MEDS: cefTRIAXone 1GM/50ML D5W 50 ML IV SCH (09:32)
[2023-11-04] MEDS: PANTOPRAZOLE 40 MG TAB PO ONE (09:43)
[2023-11-04] MEDS ORDERED: PANTOPRAZOLE 40 MG TAB PO SCH (10:00)
[2023-11-04] MEDS ORDERED: SERTRALINE HCL 50 MG TAB PO SCH (10:00)
[2023-11-04] MEDS: AZITHROMYCIN 500MG/ 250ML 250 ML IV SCH (10:32)
[2023-11-04 12:09] LABS: Lymphocytes % (manual) 6 (10.0-50.0); Monocytes % (manual) 3 (0-12); Platelet Estimate Adequate
[2023-11-04 12:44] LABS: Urine Bacteria None Seen /hpf (None Seen)
[2023-11-04 13:04] LABS: Urine Blood 1+ /uL (Negative); Urine Clarity Clear (Clear); Urine Color Light-Yellow (Yellow); Urine Protein, UAD 1+ (Negative); Urine Specific Gravity 1.023 (1.001-1.035); Urine Urobilinogen Normal (Negative); Urine WBC 2 /hpf (0 - 5); Urine pH 5.5 (5.0-9.0)
[2023-11-04 13:15] LABS: Amphetamine Screen, Urine Neg (NEGATIVE); Barbiturate Scree,Urine Neg (NEGATIVE); Benzodiazephine Screen, Urine Neg (NEGATIVE); Cannabinoid Screen, Urine Neg (NEGATIVE); Cocaine Screen, Urine Neg (NEGATIVE); Opiate Scree,Urine Neg (NEGATIVE); Phencyclidine Screen, Urine Neg (NEGATIVE)
[2023-11-04] MEDS ORDERED: DEXTROSE (50%) 50ML SYRG IV PRN (17:00)
[2023-11-04] MEDS ORDERED: methylPREDNISolone SOD SUCC 125 MG/2 ML VL IV SCH (22:00)
[2023-11-05] VITALS (15 sets, daily range): BP systolic 119–163; BP diastolic 42–75; PULSE 52–86; RESP 16–20; TEMP 97.6–98.6; O2SAT 94–100
[2023-11-05] MEDS: PANTOPRAZOLE 40 MG TAB PO SCH (06:09)
[2023-11-05 06:40] LABS: Anion Gap 4 (5-15); Carbon Dioxide 32 mmol/L (20-30); Chloride 105 mmol/L (98-107); Potassium 4.7 mmol/L (3.5-5.1); Sodium 141 mmol/L (136-145)
[2023-11-05 06:42] LABS: Calcium 10.3 mg/dL (8.7-10.4)
[2023-11-05 06:46] LABS: Glucose 131 mg/dL (74-106)
[2023-11-05 06:47] LABS: BUN/Creatinine Ratio 40.2 (10.0-20.0); Blood Urea Nitrogen 37 mg/dL (9-23)
[2023-11-05 07:02] LABS: Basophils # (auto) 0 10 ^3/uL (0-0.2); Eosinophils # (auto) 0 10 ^3/uL (0-0.8); Hematocrit 33.8 % (36.0-46.0); Hemoglobin 11.4 g/dL (12.2-16.2); Lymphocytes # (auto) 0.9 10 ^3/uL (0.4-5.4); Lymphocytes % (auto) 11.1 % (10.0-50.0); Mean Corpuscular Hemoglobin 29.5 pg (28.0-32.0); Mean Corpuscular Hgb Conc. 33.8 g/dL (32.0-36.0); Mean Corpuscular Volume 87.2 fL (80.0-100.0); Monocytes # (auto) 0.6 10 ^3/uL (0-1.3); Monocytes % (auto) 6.7 % (0.0-12.0); Neutrophils # (auto) 6.9 10 ^3/uL (1.6-8.6); Neutrophils % (auto) 82.2 % (37.0-80.0); Platelet Count (auto) 278 10^3/uL (140-450); Red Blood Cells 3.87 10^6/uL (4.0-5.20); White Blood Cell 8.3 10^3/uL (4.4-10.8)
[2023-11-05 07:19] LABS: Free T3 2.47 pg/mL (2.3-4.2)
[2023-11-05 07:20] LABS: Free T4 (Free Thyroxine) 1.24 ng/dL (0.89-1.76)
[2023-11-05] MEDS ORDERED: LEVO500T91 PO (16:06)
[2023-11-05] MEDS ORDERED: AZIT-43 PO (16:06)
[2023-11-05] MEDS: hydrALAZINE HCL 20 MG/ML VL IV PRN (17:55)
[2023-11-06] MEDS ORDERED: BENAZEPRIL HCL 10 MG TAB PO SCH (10:00)
== END 2023-11-05 20:15 | disposition home or self-care (01) | DRG 177 ==
LOC: EDBD 09:46 → ER 09:46 → OVERFLOW 14:50 → WEST WING 17:44 → TELE-WESTW 11-04 20:08
PROVIDERS: ADMIT Internal Medicine Pulmonary Disease; ATTEND Surgery
DX: J15.69 Pneumonia due to other Gram-negative bacteria (principal); J96.01 Acute respiratory failure with hypoxia; J44.0 Chronic obstructive pulmonary disease with (acute) lower respiratory infection; J81.1 Chronic pulmonary edema; N17.9 Acute kidney failure, unspecified; N13.2 Hydronephrosis with renal and ureteral calculous obstruction; J15.9 Unspecified bacterial pneumonia; K21.9 Gastro-esophageal reflux disease without esophagitis; E11.22 Type 2 diabetes mellitus with diabetic chronic kidney disease; F41.9 Anxiety disorder, unspecified; I27.20 Pulmonary hypertension, unspecified; N28.1 Cyst of kidney, acquired; E07.81 Sick-euthyroid syndrome; I12.9 Hypertensive chronic kidney disease with stage 1 through stage 4 chronic kidney disease, or unspecified chronic kidney disease; N18.9 Chronic kidney disease, unspecified; F32.A Depression, unspecified; E78.5 Hyperlipidemia, unspecified; Z82.49 Family history of ischemic heart disease and other diseases of the circulatory system; Z80.41 Family history of malignant neoplasm of ovary; Z80.49 Family history of malignant neoplasm of other genital organs; Z85.828 Personal history of other malignant neoplasm of skin; Z87.442 Personal history of urinary calculi
CPT/HCPCS: 36415; 36600; 70450; 70551; 71045; 74176; 76775; 80048; 80053; 80061; 80307; 81001; 82306; 82607; 82805; 82962; 83036; 83735; 83880; 84439; 84443; 84481; 84484; 85007; 85025; 85027; 87040; 87070; 87205; 93005; 93306; 93886; 94640; 96365; 96375; G0378; J1815

== ENCOUNTER 2023-12-10 10:22 | Emergency (ER) | payer OTHER, MEDICAID ==
[~2023-12-10] VITALS: Ht 152.4 cm; Wt 77.2 kg
[~2023-12-10 10:22] MED LIST changes: +AZIT-43 PO; -BENZ100C97 PO; -DICL1GEL72 EX; -DOCU100T15 PO; +LEVO500T91 PO; -SILD20TA PO
[2023-12-10 10:45] VITALS: PULSE 62; RESP 12; O2SAT 99
[2023-12-10 11:41] LABS: Basophils # (auto) 0 10 ^3/uL (0-0.2); Basophils % (auto) 0.5 % (0.0-2.0); Eosinophils # (auto) 0.1 10 ^3/uL (0-0.8); Eosinophils % (auto) 1.6 % (0.0-7.0); Hematocrit 41.3 % (36.0-46.0); Hemoglobin 13.8 g/dL (12.2-16.2); Lymphocytes # (auto) 1.7 10 ^3/uL (0.4-5.4); Mean Corpuscular Hemoglobin 29.5 pg (28.0-32.0); Mean Corpuscular Hgb Conc. 33.4 g/dL (32.0-36.0); Mean Corpuscular Volume 88.2 fL (80.0-100.0); Monocytes # (auto) 0.5 10 ^3/uL (0-1.3); Monocytes % (auto) 7.4 % (0.0-12.0); Neutrophils # (auto) 4.8 10 ^3/uL (1.6-8.6); Neutrophils % (auto) 66.5 % (37.0-80.0); Nucleated Red Blood Cells % 0.1 %; Platelet Count (auto) 228 10^3/uL (140-450); Red Blood Cells 4.68 10^6/uL (4.0-5.20); Red Cell Distribution Width 14.5 % (11.8-14.3); White Blood Cell 7.2 10^3/uL (4.4-10.8)
[2023-12-10] MEDS: amLODIPine BESYLATE 5 MG TAB PO ONE (11:44)
[2023-12-10 11:50] LABS: Alanine Aminotransferase 13 U/L (7-40); Albumin 4.1 g/dL (3.2-4.8); Alkaline Phosphatase 94 U/L (46-116); Anion Gap 3 (5-15); Aspartate Aminotransferase 20 U/L (13-40); BUN/Creatinine Ratio 18.3 (10.0-20.0); Blood Urea Nitrogen 15 mg/dL (9-23); Calcium 9.7 mg/dL (8.7-10.4); Carbon Dioxide 33 mmol/L (20-31); Chloride 104 mmol/L (98-107); Glucose 88 mg/dL (74-106); Magnesium 2.2 mg/dL (1.6-2.6); Potassium 4.3 mmol/L (3.5-5.1); Sodium 140 mmol/L (136-145)
[2023-12-10 11:51] LABS: Bilirubin, Total 0.4 mg/dL (0.2-1.0); Total Protein 6.7 g/dL (5.7-8.2)
[2023-12-10 12:29] LABS: Urine Bacteria None Seen /hpf (None Seen)
[2023-12-10 12:47] LABS: Urine Blood TRACE /uL (Negative); Urine Clarity Clear (Clear); Urine Color Light-Yellow (Yellow); Urine Protein, UAD TRACE (Negative); Urine Specific Gravity 1.016 (1.001-1.035); Urine Urobilinogen Normal (Negative); Urine WBC 2 /hpf (0 - 5)
[2023-12-10 13:00] VITALS: BP 165/54; PULSE 66; RESP 12; O2SAT 99
== END 2023-12-10 14:40 | disposition home or self-care (01) ==
LOC: ER 10:22 → EDBD 10:22 → ER 14:40
DX: E11.649 Type 2 diabetes mellitus with hypoglycemia without coma (principal); I10 Essential (primary) hypertension; E78.5 Hyperlipidemia, unspecified; F41.9 Anxiety disorder, unspecified; F32.A Depression, unspecified; J44.9 Chronic obstructive pulmonary disease, unspecified; M10.9 Gout, unspecified; M19.90 Unspecified osteoarthritis, unspecified site; Z85.9 Personal history of malignant neoplasm, unspecified; Z87.891 Personal history of nicotine dependence; Z79.4 Long term (current) use of insulin; Z79.899 Other long term (current) drug therapy
CPT/HCPCS: 36415; 71045; 80053; 81001; 82962; 83605; 83735; 83880; 84484; 85025

== ENCOUNTER 2024-06-09 11:29 | Emergency (ER) | payer OTHER, MEDICAID ==
[~2024-06-09] VITALS: Ht 149.9 cm; Wt 80.0 kg
[2024-06-09 13:09] VITALS: BP 139/50; PULSE 81; RESP 21; TEMP 98.7; O2SAT 96
--- NOTE | 2024-06-09 13:21 | ED.PDOC ---
Zaki. trauma (HPI) HPI Comments A 69 YEAR OLD FEMALE PRESENTS TO THE ED WITH CHIEF COMPLAINT OF FALL INJURY. PATIENT REPORTS THAT WHILE TAKING OUT HER TRASH YESTERDAY NIGHT, SHE HAD TRIPPED ON THE SIDEWALK AND FELL FACE FIRST ONTO HER NOSE. PATIENT RELAYS THAT SHE SUFFERED A NOSE BLEED WITH ASSOCIATED ABRASION TO THE NOSE. PATIENT STATES THAT SHE HAD ALSO INJURED HER LEFT WRIST AND HAND WHEN BREAKING HER FALL, HOWEVER, SHE IS STILL ABLE TO MOVE THEM WELL. PATIENT DENIES ANY LOC, HEAD INJURY, DIZZINESS, OR FURTHER INJURY. Chief Complaint: Fall Injury Time Seen by MD: 13:13 Primary Care Provider: VENKAT Reviewed notes: Nurses Notes, Medications, Allergies Allergies: Coded Allergies: NO KNOWN ALLERGIES (Unverified , 01/31/22) Home Meds Active Scripts Acetaminophen (Tylenol Extra Strength Fo) 500 Mg Tab, 1000 MG PO BID, #30 TAB Prov:JOSEFINA SIBLEY 06/09/24 Cephalexin Monohydrate (Cephalexin) 500 Mg Tab, 1 TAB PO QID, #28 TAB Prov:JOSEFINA SIBLEY 06/09/24 Levofloxacin Hemihydrate (LEVOFLOXACIN) 500 Mg Tab, 1 TAB PO DAILY for 5 Days, #5 TAB Prov:LEIA SNYDER RESIDENT 11/05/23 Azithromycin (Azithromycin) 250 Mg Tab, 250 MG PO DAILY MDD 500 for 5 Days, #6 TAB 0 Refills 2 TABLETS ORALLY ON DAY ONE, THEN 1 TABLET ORALLY DAILY FOR 4 DAYS Prov:LEIA SNYDER RESIDENT 11/05/23 Prhkagnxurs-Pauyuozxbapv-Qqudu (Trelegy Ellipta 100-62.5-25 Mcg/INH) 1 Aer Aer, 1 PUFF IN HS for 60 Days, #60 AER 1 Refill Prov:ANJEL DASILVA OFFICE SERVICES ASSISTANT 04/23/23 Pantoprazole Sodium Sesquihydr (Protonix) 40 Mg Tab, 40 MG PO DAILY for 30 Days, #30 TAB Prov:SALHEIDI YADAVOLPH OFFICE SERVICES ASSISTANT 04/23/23 Furosemide (Lasix) 20 Mg Tb, 1 TAB PO DAILY for 90 Days, #90 TAB 1 Refill Prov:SALPREETHI YADAVPH OFFICE SERVICES ASSISTANT 04/23/23 Reported Medications Tolterodine Tartrate (Detrol La) 2 Mg Cap, 4 MG PO, CAP 04/20/23 Mirabegron Base (MYRBETRIQ) 50 Mg Tab, 50 MG OR, TAB 04/20/23 Evolocumab (Repatha) 140 Mg/Ml Inj, 140 MG SC EVERY TWO WEEKS for HIGH CHOLESTEROL, INJ 01/31/22 Allopurinol (Allopurinol) 100 Mg Tab, 100 MG PO BIDP 05/18/20 Duloxetine Hcl (Cymbalta) 60 Mg Cap, 1 CAP PO DAILY PATIENT REPORTS LAST TAKEN 2 WEEKS AGO (FROM TODAY 05/18/20) 05/18/20 Montelukast Sodium (MONTELUKAST SODIUM) 10 Mg Tab, 1 TAB PO DAILY 05/18/20 Famotidine (PEPCID TABLET) 20 Mg Tb, 1 TAB PO BID 05/18/20 Cholecalciferol (D-5000) 5,000 Unit Tab, 5000 UNIT PO DAILY, TAB 05/18/20 Insulin Glargine (Basaglar Kwikpen) 100 Unit/Ml Inj, 70 UNIT SC HS 05/18/20 [place]-3 Fatty Acids (FISH OIL) 1,000 Mg Cap, 1000 MG PO DAILY, CAP 03/18/17 Methocarbamol (Methocarbamol) Unknown Strength Tab, PO BID 03/18/17 Atorvastatin Calcium (ATORVASTATIN CALCIUM) 80 Mg Tab, 1 TAB PO HS 03/18/17 Benazepril Hcl (Benazepril Hcl) 20 Mg Tab, 20 MG PO DAILY for 30 Days, MG 03/18/17 Gabapentin (Gabapentin) 300 Mg Cap, 0 PO UD TAKE 1 CAP PO QAM & 2 CAPS PO HS 06/14/11 Sertraline Hcl (Sertraline Hcl) 100 Mg Tab, 200 MG PO DAILY 06/14/11 Alprazolam (Xanax) 0.5 Mg Tb, 0.5 MG PO DAILY 02/15/11 Information Source: Patient Mode of Arrival: Ambulatory Severity: Moderate Timing: Days Duration: Since onset Prehospital treatment: None Location: Face, (L) Hand, Nose Location of laceration: None Mechanism: Fall Associated signs and symtoms: None Past Medical History PAST MEDICAL HISTORY: Anxiety, Arthritis, Cancer, COPD, Depression, DM, High Lipids, HTN, Kidney Stones Surgical History: Denies all surgeries CARRIER PACKER History: No Pertinent CARRIER PACKER History Family History Family History: No family hx of Cancer, No family hx of Heart melchor Social History Smoker: Non-Smoker, Quit Greater Than 1 Year Alcohol: Denies ETOH Use Drugs: Denies Drug Use Lives In: Home Constitutional: denies: chills, diaphoresis, fatigue, fever, malaise, sweats, weakness, others EENTM: reports: nose pain; denies: blurred vision, double vision, ear bleeding, ear discharge, ear drainage, ear pain, ear ringing, eye pain, eye redness, hearing loss, mouth pain, mouth swelling, nasal discharge, nose bleeding, nose congestion, photophobia, tearing, throat pain, throat swelling, voice changes, others Respiratory: denies: cough, hemoptysis, orthopnea, SOB at rest, shortness of breath, SOB with excertion, stridor, wheezing, others Cardiovascular: denies: chest pain, dizzy spells, diaphoresis, Dyspnea on exertion, edema, irregular heart beat, left arm pain, lightheadedness, palpitations, PND, syncope, others Gastrointestinal: denies: abdomen distended, abdominal pain, blood streaked bowels, constipated, diarrhea, dysphagia, difficulty swallowing, hematemesis, melena, nausea, poor appetite, poor fluid intake, rectal bleeding, rectal pain, vomiting, others Genitourinary: denies: abnormal vagina bleeding, burning, dyspareunia, dysuria, flank pain, frequency, hematuria, incontinence, pain, , vagina discharge, urgency, others Neurological: denies: dizziness, fainting, headache, left sided numbness, left sided weakness, numbness, paresthesia, pre-existing deficit, right sided numbness, right sided weakness, seizure, speech problems, tingling, tremors, weakness, others Musculoskeletal: reports: joint pain, muscle pain; denies: back pain, gout, joint swelling, muscle stiffness, neck pain, others Integumetry: reports: bruises (LEFT WRIST AND HAND), others (ABRASION TO NOSE); denies: change in color, change in hair/nails, dryness, laceration, lesions, lumps, rash, wounds Allergic/Immunocompromised: denies: Difficulty Healing, Frequent Infections, Hives, Itching, others Hematologic/Lymphatic: denies: anemia, blood clots, easy bleeding, easy bruising, swollen glands, others Endocrine: denies: excessive hunger, excessive sweating, excessive thirst, excessive urination, flushing, intolerance to cold, intolerance to heat, unexplained weight gain, unexplained weight loss, others Psychiatric: denies: anxiety, bipolar disorder, depression, hopeless, panic disorder, schizophrenia, sleepless, suicidal, others All Other Systems: Reviewed and Negative Physical Exam General Appearance: No Apparent Distress, Normal HEENT: PERRL/EOMI, Pharynx Normal, Other (BONY TENDERNESS AND SWELLING WITH ABRASIONS ON THE ANTERIOR NOSE, NO NOSE BLEEDING AND BLOOD CLOTS. ) Neck: Full Range of Motion, Non-Tender, Normal, Normal Inspection Respiratory: Chest Non-Tender, Lungs Clear, No Accessory Muscle Use, No Respiratory Distress, Normal Breath Sounds Cardiovascular: No Edema, No JVD, No Murmur, No Gallop, Normal Peripheral Pulse s, Regular Rate/Rhythm Breast Exam: Deferred Gastrointestinal: No Organomegaly, Non Tender, No Pulsatile Mass, Normal Bowel Sounds, Soft Genitalia: Deferred Pelvic: Deferred Rectal: Deferred Extremities: No calf tenderness, Normal capillary refill, Normal range of motion, No pedal edema, Tender (AND MILD SWELLING AND CONTUSION ON LEFT HAND AND WRIST, NO BONY TENDERNESS AND DEFORMITY. ) Musculoskeletal : Apperance: Normal Neurologic: Alert, electric scoop operator II-XII nml as Tested, No Motor Deficits, Normal Affect, Normal Mood, No Sensory Deficits Cerebellar Function: Normal Reflexes: Normal Skin: Bruises (LEFT VOLAR WRIST AND THUMB REGION. ), Dry, Normal Color, Warm, Wounds (A FEW ABRASION ON ANTERIOR NOSE, NO BLEEDING AND FB. ) Peripheral Pulses: 2+ carotid (R), 2+ carotid (L) Lymphatic: No Adenopathy Was a procedure done? Was a procedure done?: No Differential Diagnosis Multiple Trauma: Abrasions, Contusion X-Ray, Labs, Meds, VS Vital Signs Date Time Temp Pulse Resp B/P (MAP) Pulse Ox O2 Delivery O2 Flow Rate FiO2 06/09/24 13:09 98.7 81 21 139/50 (79) 96 98.7 06/09/24 13:09 81 21 96 Room Air 06/09/24 12:35 98.7 81 21 139/50 (79) 96 98.7 LT HAND XR: IMPRESSION: 1. No acute bony pathology L BONES XR: FINDINGS/IMPRESSION: There is no evidence of acute fracture or dislocation. Possible nondisplaced nasal bone fracture on the left. The visualized joint space is well maintained. The alignment is anatomical. There is no radiopaque foreign body. X-Ray, Labs, Meds, VS Comment EXTERNAL MEDICAL RECORDS REVIEWED: [NONE] INDEPENDENT HISTORIANS: [NONE] SOCIAL DETERMINANTS OF HEALTH: [NONE] LABS ORDERED: NONE REVIEWED AND INTERPRETED RESULTS: NASAL BONE XR, LEFT HAND XR INTERPRETED BY ME. NO ACUTE FINDINGS. NO FRACTURES OR DISLOCATION. PENDING RADIOLOGIST REPORT. IMAGING ORDERED: NASAL BONE XR, LEFT HAND XR TREATMENTS ORDERED: NONE PROCEDURES PERFORMED: NONE CRITICAL CARE TIME: NONE I HAVE DISCUSSED THE PATIENT WITH THE ATTENDING PHYSICIAN DR. AGUIRRE AND HE AGREES WITH THE PATIENT'S PLAN OF CARE AND DISPOSITION. BASED ON HISTORY OF PRESENT ILLNESS, AND PHYSICAL EXAM, PATIENT WILL BE DISCHARGED HOME. DISCUSSED PLAN FOR DISCHARGE HOME WITH RX: KEFLEX AND TYLENOL. MEDICATION WARNINGS GIVEN. SHARED DECISION MAKING: DISCUSSED WITH PATIENT THAT THEIR WORKUP WAS NORMAL. PATIENT INSTRUCTED TO FOLLOW UP WITH PRIMARY CARE PROVIDER IN 1-2 DAYS FOR RE- EVALUATION OF SYMPTOMS. PATIENT VERBALIZES UNDERSTANDING TO RETURN TO ED FOR NEW OR WORSENING SYMPTOMS OR IF FOLLOW UP WITH PCP CANNOT BE OBTAINED. PATIENT FEELS COMFORTABLE GOING HOME AT THIS TIME. ALL QUESTIONS ADDRESSED AT TIME OF DISCHARGE. Time of 1ST Reevaluation: 14:30 Reevaluation 1ST: Improved Patient Education/Counseling: Diagnosis, Treatment, Need For Follow Up Family Education/Counseling: Diagnosis, Treatment, No Family Present Medical Screening: No EMC Exist At This Time Departure 1 Departure Time of Disposition: 14:30 Impression: Primary Impression: Nasal bone fracture Qualified Codes: S02.2XXA - Fracture of nasal bones, initial encounter for closed fracture Additional Impressions: Contusion of left hand Qualified Codes: S60.222A - Contusion of left hand, initial encounter Nose abrasion Qualified Codes: S00.31XA - Abrasion of nose, initial encounter Disposition: 01 HOME / SELF CARE / HOMELESS Condition: Stable Additional Instructions: FOLLOW-UP WITH PCP IN 1 TO 2 DAYS. TAKE MEDICATIONS PRESCRIBED. RETURN TO ED FOR ANY NEW OR WORSENING SYMPTOMS. e-Prescriptions Acetaminophen (Tylenol Extra Strength Fo) 500 Mg Tab 1000 MG PO BID, #30 TAB Prov: JOSEFINA SIBLEY 06/09/24 Cephalexin Monohydrate (Cephalexin) 500 Mg Tab 1 TAB PO QID, #28 TAB Prov: JOSEFINA SIBLEY 06/09/24 Discharged With: Self Critical Care Note Critical Care Time?: No Stability Stability form required: No Heart Score Heart Score: Heart Score Response (Comments) Value History N/A 0 EKG N/A 0 Age N/A 0 Risk Factors N/A 0 Troponin N/A 0 Total 0 I personally scribed for JOSEFINA SIBLEY ([email or web address]) on 06/09/24 at 13:21. Electronically submitted by Noah Baugh ([email or web address]). I personally scribed for JOSEFINA SIBLEY ([email or web address]) on 06/09/24 at 13:52. Electronically submitted by Noah Baugh ([email or web address]). I personally scribed for JOSEFINA SIBLEY ([email or web address]) on 06/09/24 at 14:29. Electronically submitted by Noah Baugh ([email or web address]). JOSEFINA SIBLEY Jun 09, 2024 13:21
--- NOTE | 2024-06-09 14:03 | DVH ---
AP view left hand REASON FOR EXAM: FALL INDICATION: FALL FINDINGS: No fractures or dislocations. No erosions or periosteal reaction. Degenerative changes of t he 1st carpometacarpal joint IMPRESSION: 1. No acute bony pathology
[2024-06-09] MEDS ORDERED: ACET-1304 PO (14:05)
[2024-06-09] MEDS ORDERED: CEPH500T PO (14:05)
--- NOTE | 2024-06-09 14:23 | DVH ---
CLINICAL INDICATION: FALL TECHNIQUE: 3 radiographic views of the nasal bones were obtained. Comparison: None FINDINGS/IMPRESSION: There is no evidence of acute fracture or dislocation. Possible nondisplaced nasal bone fracture on t he left. The visualized joint space is well maintained. The alignment is anatomical. There is no radiopaque foreign body.
== END 2024-06-09 14:36 | disposition home or self-care (01) ==
LOC: ER 11:43
DX: S02.2XXA Fracture of nasal bones, initial encounter for closed fracture (principal); S60.222A Contusion of left hand, initial encounter; S60.212A Contusion of left wrist, initial encounter; E11.9 Type 2 diabetes mellitus without complications; F32.A Depression, unspecified; F41.9 Anxiety disorder, unspecified; I10 Essential (primary) hypertension; J44.9 Chronic obstructive pulmonary disease, unspecified; M19.90 Unspecified osteoarthritis, unspecified site; Z79.899 Other long term (current) drug therapy; W01.0XXA Fall on same level from slipping, tripping and stumbling without subsequent striking against object, initial encounter; Y93.89 Activity, other specified; Y92.480 Sidewalk as the place of occurrence of the external cause; Y99.8 Other external cause status
CPT/HCPCS: 70160; 73130